=== PATIENT | male | born 1985 | race Caucasian/White ===

== ENCOUNTER 2021-02-01 10:57 | Outpatient (CLI) | payer OTHER, SELFPAY | END 2021-02-01 10:58 | disposition home or self-care (01) | PROVIDERS: PCP Internal Medicine; Visit Provider Surgery | DX: K40.90 Unilateral inguinal hernia, without obstruction or gangrene, not specified as recurrent (principal) | CPT/HCPCS: 36415; 86850; 86900; 86901 ==

== ENCOUNTER → 2021-02-04 01:57 | Outpatient (CLI) | payer OTHER, SELFPAY ==
[2021-02-04 19:28] LABS: SARS-CoV-2 RNA PCR Negative
== END ==
PROVIDERS: PCP Internal Medicine; Visit Provider Surgery
DX: Z01.812 Encounter for preprocedural laboratory examination (principal); Z20.822 Contact with and (suspected) exposure to COVID-19
CPT/HCPCS: C9803; U0003; U0005

== ENCOUNTER 2021-02-07 00:25 | Day surgery (SDC) | payer OTHER, SELFPAY ==
[2021-01-31 17:24] VITALS: BMI 29.7
--- NOTE | 2021-02-06 10:29 | P.PNAN_ITS ---
Anes - Initial Pre Proc Eval Procedure: Operation Date: 02/07/21 08:30 Proposed Procedures p Laparoscopic Left Inguinal Hernia Repair with Mesh, Davinci Assisted - Ryan Giron DO s Bilateral Vasectomy - Galen Acuna MD Date/Time: 02/06/21 10:29 Surgeon: Ryan Giron DO Pre Op Diagnosis: Left inguinal hernia, sterilization Patient Data Age: 35 Gender: M Height: 1.96 m Weight: 113.6 kg Allergies Allergy/AdvReac Type Severity Reaction Status Date / Time No Known Allergies Allergy Mild Verified 01/31/21 17:18 Home Medications Medication Instructions Recorded Confirmed Type No Home Medications 01/04/21 02/07/21 History Patient hx anesthesia problems: none Family hx anesthesia problems: none [facility] Past Medical History Medical History (Updated 02/06/21 @ 10:29 by Zeehsan Crooks DO) PIPO (obstructive sleep apnea) Surgical History Surgical History H/O right inguinal hernia repair S/P orchiopexy Family History Family History Grandparent Diabetes mellitus Social History Social History Smoking status: Never smoker Alcohol intake: current Living arrangements: with family Additional occupation/education comments: Manager [employer] Spiritual care concerns: No Anes - Eval Final PreProcedure Day of Procedure 02/06/21 10:29 Patient weight: overweight Heart: regular rate and rhythm Lungs: clear to auscultation and normal air movement Airway: Mallampati scale class II Neurological: alert and oriented Last oral intake: >/= 8 hours ASA classification: II Emergent: no Anesthetic plan: proceed Anesthesia type and monitoring: general ETT and standard monitoring Informed Consent: The patient's anesthetic plan and its attendant risks and benefits were discussed with the patient/family/POA. Questions were solicited and answers provided to the satisfaction of the patient/family/POA.
[2021-02-07] VITALS (10 sets, daily range): BP systolic 109–135; BP diastolic 77–86; PULSE 58–83; RESP 14–18; TEMP 36.2; O2SAT 99–100; BMI 30.8
--- NOTE | 2021-02-07 07:24 | PM.IMHP ---
H&P: HPI History of Present Illness Date/Time: 02/07/21 07:24 Chief Complaint: left inguinal hernia Narrative: 35 yo man presents for left inguinal hernia repair and vasectomy. Denies any changes since last seen in office. Review of Systems Review of Systems: All systems reviewed & are unremarkable except as noted in HPI and below Constitutional: Constitutional: Denies chills, Denies fever(s), Denies headache(s) and Denies weight loss Eyes: Eyes: Denies change in vision ENT: Denies dizziness, Denies headache(s), Denies neck mass and Denies throat swelling Cardiovascular: Cardiovascular: Denies chest pain, Denies lightheadedness and Denies dyspnea Respiratory: Respiratory: Denies cough, Denies dyspnea and Denies wheezing Gastrointestinal: Gastrointestinal: Denies abdominal pain, Denies change in bowel habits, Denies nausea and Denies vomiting Genitourinary: Genitourinary: Denies hematuria and Denies dysuria Musculoskeletal: Musculoskeletal: Reports as per HPI Integumentary/Breasts: Skin/Breast: Reports as per HPI Neurologic: Denies dizziness and Denies headache(s) Allergic/Immunologic: Allergic/Immunologic: Denies throat swelling and Denies wheezing [facility] Past Medical History Medical History (Updated 02/06/21 @ 10:29 by Zeeshan Crooks DO) PIPO (obstructive sleep apnea) Surgical History Surgical History H/O right inguinal hernia repair S/P orchiopexy Family History Family History Grandparent Diabetes mellitus Social History Social History Smoking status: Never smoker Alcohol intake: current Living arrangements: with family Additional occupation/education comments: Spotter Spiritual care concerns: No Meds Home Medications and Allergies Home Medications Medication Instructions Recorded Confirmed Type No Home Medications 01/04/21 02/07/21 History Allergies Allergy/AdvReac Type Severity Reaction Status Date / Time No Known Allergies Allergy Mild Verified 01/31/21 17:18 Vital Signs Vital Signs - 24 hr 02/07/21 06:40 Temperature 36.2 C L Pulse Rate 75 Respiratory Rate 16 Blood Pressure 135/86 Pulse Oximetry 100 Exam Const: General: no acute distress and alert Orientation/consciousness: patient oriented x3 HENMT: Head: normocephalic and atraumatic Ears: hearing grossly normal bilaterally General nose exam: Normal nares present Mouth: Yes Normal oral and palatal mucosa present Eyes: Periorbital: periorbital findings normal Sclera: sclerae normal EOM: EOMs intact bilaterally Neck: Neck: normal visual inspection, no lymphadenopathy and trachea midline Chest: Chest palpation & inspection: normal inspection of the chest Resp: Effort & Inspection: normal respiratory effort Auscultation: clear to auscultation bilaterally Cardio: Jugular venous distension: no JVD Rate: regular rate Rhythm: regular rhythm Heart sounds: S1 normal heart sound present and S2 normal heart sound present Peripheral pulses: Peripheral pulses 2+ throughout GI: Inspection: normal to inspection GI Palp: Yes Soft to palpation, No Tenderness to palpation present (GI), No Guarding due to palpation present (GI) and No Rebound tenderness present Percussion: Yes normal to percussion Auscultation: normal bowel sounds : General: Yes no CVA tenderness Scrotum: inguinal hernia on the left Back/Spine/Pelvis: Back: no CVA tenderness Neuro: General: patient oriented x3, no focal motor deficits and CN's II-XI intact bilaterally Cognition (Neuro): normal cognition Speech: normal speech Motor exam (neuro): 5/5 motor strength present throughout Extrem: General: capillary refill normal and no clubbing, cyanosis or edema Assessment and Plan Assessment and plan (1) Left inguinal hernia: Code(s): K
--- NOTE | 2021-02-07 07:28 | WPDHPUPDATE1 ---
History and Physical Update Update Date/Time: 02/07/21 07:28 History and Physical has been reviewed, including an updated exam of the patient. There are NO changes in the patient's condition. Risks, benefits, and alternatives have been discussed and questions answered. Patient agrees to proceed with procedure.
--- NOTE | 2021-02-07 07:33 | WPDHPUPDATE1 ---
History and Physical Update Update Date/Time: 02/07/21 07:33 History and Physical has been reviewed, including an updated exam of the patient. There are NO changes in the patient's condition. Risks, benefits, and alternatives have been discussed and questions answered. Patient agrees to proceed with procedure. Proceed with bilateral vasectomy
[2021-02-07] MEDS: LACTATED RINGERS 1,000 ML 30 ML IV CONT ×2 (07:35→10:59)
[2021-02-07] MEDS: ACETAMINOPHEN 500 MG TABLET 1000 MG PO (07:39)
[2021-02-07] MEDS: KETOROLAC 15 MG/ML VIAL (*BKC) IV PUSH (07:40)
[2021-02-07] MEDS: ceFAZolin 2 GM/D5W 50 ML 2 GM/50 ML BAG IVPB (08:20)
--- NOTE | 2021-02-07 09:22 | W.PM.PROC2 ---
Procedure Note - Detailed Date of Procedure 02/07/21 Pre-op Diagnosis Left inguinal hernia, sterilization Post-op Diagnosis same Procedure Performed bilateral vasectomy Surgeon Galen Acuna MD Anesthesia general Description of Procedure Patient is taken to the operative suite and correctly identified. Once anesthesia was obtained a midline incision was made in the scrotum. The right vas was isolated. A segment was excised with the ends fulgurated ligated and buried. Similar procedure was done left side. 4% lidocaine was used to anesthetize the incision. 3-0 chromic was then used to close the skin. Dr. Jordi nava then proceeded with his robotic assisted left inguinal hernia repair. He will dictate that portion of procedure. Drains No Packing No Pathology yes Complications No immediate complications Condition stable Disposition other
--- NOTE | 2021-02-07 10:14 | W.PM.PROC2 ---
Procedure Note - Detailed Date of Procedure 02/07/21 Pre-op Diagnosis Left inguinal hernia, sterilization Post-op Diagnosis same (Indirect LIH) Procedure Performed Laparoscopic left inguinal hernia repair with mesh, da Dariela assisted Surgeon Ryan Giron, Anesthesia general and local (0.5% bupivacaine with epinephrine) Indications This is a 35-year-old man who presents with a left groin bulge that he noticed a couple months ago. He does not have significant pain with this, but he does have a rather sizable bulge in the left inguinal region was found to have a large reducible left inguinal hernia. Discussions were made with the patient about treatment options and decision was made to proceed with laparoscopic left inguinal hernia repair with mesh, Dariela assisted. Patient also wished to proceed with vasectomy at the same time, therefore surgery was coordinated with Urology. Findings Laparoscopic left inguinal hernia repair was performed. A robotic transabdominal preperitoneal approach was utilized. The patient was found to have a large indirect left inguinal hernia. The hernia sac extended deep within the inguinal canal. The hernia sac was completely reduced. A ProGrip 10 cm x 15 cm mesh was placed within the preperitoneal pocket overlying the entire left myopectineal orifice. There was no evidence of right inguinal hernia. Description of Procedure Procedure as well as risks, benefits, and alternatives were discussed with the patient. Written consent was obtained and placed in chart prior to procedure. Patient was brought back to surgical suite. He was placed supine on operating table. Time-out was done to confirm patient and procedure. He was then intubated by Anesthesia Department. His abdomen was prepped and draped in sterile fashion using chlorhexidine prep. 0.5% bupivacaine with epinephrine was infiltrated at each location for incision. An 8 mm incision was made in the left lateral abdomen, and a 5 mm Optiview trocar was advanced through the abdominal layers under direct visualization. Once inside the abdominal cavity, carbon dioxide insufflation was used to create a pneumoperitoneum. A camera was inserted and the abdominal cavity was inspected. The patient was placed in slight Trendelenburg position. An 8 millimeter incision was made on the right lateral abdomen and an 8 millimeter trocar was inserted under direct visualization. Another 8 millimeter incision was made just superior to the umbilicus and an 8 millimeter trocar was inserted under direct visualization. The 5 mm port was then removed and this was replaced with another 8 mm robotic port. The robotic arms were brought up to the patient's bedside and secured to the ports. The camera and instruments were inserted. I then moved over to the robotic console and took control of the camera and instruments. After careful inspection of the abdominal cavity, I began scoring the peritoneum along the left lower quadrant using scissors with electrocautery. The preperitoneal plane was entered and this was carefully dissected caudally along the inferior epigastric vessels. Careful dissection with scissors with electrocautery and blunt dissection was used to continue this dissection. I dissected far enough laterally to allow for mesh placement, and also dissected medially to identify the pubic arch and Jameson's ligament. The hernia sac was identified and carefully dissected posteriorly. The cord contents were also identified and the peritoneum was carefully dissected far enough posteriorly to allow for mesh placement. Once an adequate pocket was created, I then placed the mesh within the preperitoneal pocket and carefully unfolded it. The mesh was centered on the hernia defect with adequate overlap circumferentially. The inferior edge of the mesh was inspected to ensure that it was far enough away from the peritoneal edge. The mesh appeared in proper position overlying the entire myopect
== END 2021-02-07 12:15 | disposition home or self-care (01) ==
PROVIDERS: Urology; PCP Internal Medicine; Visit Provider Surgery
PROC: 8E0Y4CZ Robotic Assisted Procedure of Lower Extremity, Percutaneous Endoscopic Approach (ICD-10-PCS; CPT 49650; principal; 2021-02-07 08:30)
PROC: (CPT 55250; 2021-02-07 08:30)
DX: K40.90 Unilateral inguinal hernia, without obstruction or gangrene, not specified as recurrent (principal); Z30.2 Encounter for sterilization; G47.33 Obstructive sleep apnea (adult) (pediatric)
CPT/HCPCS: 49650; 55250; S2900; 88300; A9270; C1781; C9803; J0690; J1100; J1170; J1885; J2250; J2405; J2704; J2710; J3010; J7030; J7120; U0003; U0005